=== PATIENT | male | born 1940 | race Caucasian/White ===

== ENCOUNTER 2017-02-24 08:01 | Day surgery (SDC) | payer OTHER ==
[2017-02-20 11:07] VITALS: BMI 21.2
[2017-02-24] MEDS ORDERED: PROPOFOL 20 ML ONE (08:32)
[2017-02-24 10:48] VITALS: BP 131/65; PULSE 68; TEMP 98.1
--- NOTE | 2017-02-26 15:42 | PATH ---
Surgical Pathology Report Patient Name: CARLEE CHING [facility]. Rec. #: [id number] /Age/Gender: 1940 (Age: 77) / M Account: [id number] Location: [facility] [place] Taken: 02/24/2017 Received: 02/24/2017 Reported: 02/26/2017 Physicians: Theodore Randle M.D. Specimen(s) Received BX RECTO-SIGMOID Clinical History History of polyps Polyp Final Diagnosis RECTOSIGMOID, BIOPSY: HYPERPLASTIC POLYP. Electronically Signed Nicol De Santiago M.D. Gross Description Received in formalin, labeled "rectosigmoid" is a norman, polypoid portion of soft tissue measuring 0.4 cm. in greatest dimension. The specimen is submitted in toto in one cassette. 02/25/201702/25/2017
== END 2017-02-24 10:15 | disposition home or self-care (01) ==
LOC: FASU-ENDO 08:01
PROVIDERS: ATTEND Internal Medicine Gastroenterology
PROC: 0DBN8ZX Excision of Sigmoid Colon, Via Natural or Artificial Opening Endoscopic, Diagnostic (ICD-10-PCS; principal; 2017-02-24 09:00)
DX: Z86.010 Personal history of colon polyps (principal); K63.5 Polyp of colon; K57.30 Diverticulosis of large intestine without perforation or abscess without bleeding; K58.9 Irritable bowel syndrome, unspecified
CPT/HCPCS: 88305-TC

== ENCOUNTER 2017-03-18 16:28 | Emergency (ER) | payer OTHER ==
[2017-03-18 16:40] VITALS: BP 138/82; PULSE 98; TEMP 99.1; BMI 24.7
--- NOTE | 2017-03-18 16:45 | PDOC ---
History of Present Illness - General History Source: Patient, Old Records Exam Limitations: No Limitations - History of Present Illness Initial Comments: 03/18/17 16:55 The patient is a 77 year old male with significant history of hyperlipidemia, CAD, COPD, cigarette smoking, prostate CA s/p radiation, who presents to the ED complaining of several days of progressively worsening productive cough with clear sputum. Tmax 100.6. He also reports associated generalized malaise and diffuse headache. Patient's at home was sick with similar symptoms before him. The patient states he was seen at an Urgent Care facility this morning where a chest x-ray was taken. He was sent to the ED for further evaluation. <Jovita Mercer - Last Filed: 03/18/17 17:04> <Zi Wright - Last Filed: 03/18/17 18:33> - General Chief Complaint: Respiratory Stated Complaint: fever,cough r/o pneumonia Time Seen by Provider: 03/18/17 16:45 Past History <Jovita Mercer - Last Filed: 03/18/17 17:04> - Past Medical History Anemia: No Asthma: No Cancer: Yes (PROSTATE) Cardiac Disorders: Yes (CAD) CVA: No COPD: Yes CHF: No Dementia: No Diabetes: No GI Disorders: Yes (GERD COLONIC POLYP) Disorders: Yes (RADIATION FOR PROSTATE CANCER) HTN: No Hypercholesterolemia: Yes Liver Disease: No Seizures: No Thyroid Disease: No - Surgical History Abdominal Surgery: No Appendectomy: No Cardiac Surgery: No Cholecystectomy: No Lung Surgery: No Neurologic Surgery: No Orthopedic Surgery: Yes (RIGHT ANKLE FRACTURE) - Suicide/Smoking/Psychosocial Hx Smoking History: Current every day smoker Have you smoked in the past 12 months: Yes Number of Cigarettes Smoked Daily: 5 Information on smoking cessation initiated: Yes 'Breaking Loose' booklet given: 03/18/17 Hx Alcohol Use: No Drug/Substance Use Hx: No Substance Use Type: None Hx Substance Use Treatment: No <Zi Wright - Last Filed: 03/18/17 18:33> - Past Medical History Allergies/Adverse Reactions: Allergies Allergy/AdvReac Type Severity Reaction Status Date / Time No Known Allergies Allergy Verified 03/18/17 16:30 Home Medications: Ambulatory Orders Ascorbic Acid [Vitamin C] 500 mg PO DAILY 02/20/17 Aspirin [Taran Chewable Aspirin] 81 mg PO DAILY 02/20/17 Cholecalciferol (Vitamin D3) [Vitamin D3 -] 1,000 unit PO DAILY 02/20/17 [place]-3 Fatty Acids/Fish Oil [Fish Oil 1,000 mg Softgel] 1 each PO DAILY Tamsulosin HCl 0.4 mg PO DAILY 02/20/17 Atorvastatin Ca [Lipitor] 10 mg PO HS 03/18/17 Famotidine 20 mg PO DAILY 03/18/17 Guaifenesin AC [Robitussin AC -] 1 - 2 tsp PO TID PRN #120 ml MDD 6 03/18/17 Isosorbide Mononitrate [Isosorbide Mononitrate ER] 30 mg PO DAILY 03/18/17 Multivitamin [Poly-Vitamin] 1 each PO DAILY 03/18/17 Review of Systems - Review of Systems Able to Perform ROS?: Yes Comments:: 03/18/17 16:58 GENERAL/CONSTITUTIONAL: +Fever Tmax 100.6. +Malaise. HEAD, EYES, EARS, NOSE AND THROAT: No change in vision. No ear pain or discharge. No sore throat. CARDIOVASCULAR: No chest pain or lightheadedness. No peripheral edema. RESPIRATORY: +Productive cough with white sputum. No wheezing, or hemoptysis. GASTROINTESTINAL: No nausea, vomiting, diarrhea or constipation. GENITOURINARY: No dysuria, frequency, or change in urination. MUSCULOSKELETAL: No joint or muscle swelling or pain. No neck or back pain. SKIN: No rash NEUROLOGIC: +Diffuse headache. No vertigo, loss of consciousness, or change in strength/sensation. ENDOCRINE: No increased thirst. No abnormal weight change. HEMATOLOGIC/LYMPHATIC: No anemia, easy bleeding, or history of blood clots. ALLERGIC/IMMUNOLOGIC: No hives or skin allergy. <Jovita Mercer - Last Filed: 03/18/17 17:04> *Physical Exam - Vital Signs Last Vital Signs Temp Pulse Resp BP Pulse Ox 99.1 F 98 H 16 138/82 95 03/18/17 16:29 03/18/17 16:29 03/18/17 16:29 03/18/17 16:29 03/18/17 16:29 - Physical Exam Comments: 03/18/17 17:02 GENERAL: Awake, alert, and fully oriented, in no acute distress HEAD: No signs of trauma EYES: PERRLA, EOMI, sclera anicteric, conjunctiva clear ENT: Auricles normal inspection, hearing grossly normal, nares patent, oropharynx clear without exudates. Moist mucosa NECK: Normal ROM, supple, no lymphadenopathy, JVD, or masses LUNGS: No tachypnea or dypsnea. RR 16. 96 on RA. Decreased breath sounds and hyperesonance b/l. No wheezes rales or rhonchi. HEART: Regular rate and rhythm, normal S1 and S2, no murmurs, rubs or gallops ABDOMEN: Soft, nontender, normoactive bowel sounds. No guarding, no rebound. No masses EXTREMITIES: Normal range of motion, no edema. No clubbing or cyanosis. No cords, erythema, or tenderness NEUROLOGICAL: Cranial nerves II through XII grossly intact. Normal speech, normal gait SKIN: Warm, Dry, normal turgor, no rashes or lesions noted. <Jovita Mercer - Last Filed: 03/18/17 17:04> - Vital Signs Last Vital Signs Temp Pulse Resp BP Pulse Ox 99.1 F 98 H 16 138/82 95 03/18/17 16:29 03/18/17 16:29 03/18/17 16:29 03/18/17 16:29 03/18/17 16:29 <Zi Wright - Last Filed: 03/18/17 18:33> Medical Decision Making - Medical Decision Making 03/18/17 18:30 Lifelong smoker with emphysema complains of increased cough for 1 week, temperature to 100.4. Had x-ray at urgent care center, negative for pneumonia. Respiratory rate 16 unlabored, O2 saturation 96% on room air, no tachypnea, dyspnea, or other sign of respiratory distress. Was prescribed antibiotics but did not pick them up. Requests some medication to relieve his cough Physical exam is normal except for signs of COPD as noted. Azithromycin recommended as prescribed by urgent care center. Robitussin with codeine for use at night to facilitate the control of coughing spasms. Instructed to return to the ER if fever is above 101 or there as shortness of breath. Fully ambulatory upon discharge with his , in no distress respiratory or otherwise , to follow-up as directed <Zi Wright - Last Filed: 03/18/17 18:33> *DC/Admit/Observation/Transfer - Attestations Scribe Attestion: 03/18/17 17:03 Documentation prepared by Jovita Mercer, acting as medical artist for iZ Wright MD. <Jovita Mercer - Last Filed: 03/18/17 17:04> - Discharge Dispostion Admit: No <Zi Wright - Last Filed: 03/18/17 18:33> Diagnosis at time of Disposition: Bronchitis, Chronic bronchitis - Discharge Dispostion Disposition: HOME Condition at time of disposition: Stable - Prescriptions Prescriptions: Guaifenesin AC [Robitussin AC -] 1 - 2 tsp PO TID PRN #120 ml MDD 6 PRN Reason: Cough - Referrals - Patient Instructions Printed Discharge Instructions: Smoking Cessation, DI for Chronic Bronchitis Additional Instructions: Try to limit your smoking. Take antibiotics as prescribed by your primary physician and cough medication prescribed no as needed. Return to ER if your temperature goes above 101 or you become short of breath. - Post Discharge Activity
== END 2017-03-18 17:22 | disposition home or self-care (01) ==
LOC: FER 16:28
DX: J42 Unspecified chronic bronchitis (principal); F17.210 Nicotine dependence, cigarettes, uncomplicated; I25.10 Atherosclerotic heart disease of native coronary artery without angina pectoris; Z85.46 Personal history of malignant neoplasm of prostate; E78.00 Pure hypercholesterolemia, unspecified
CPT/HCPCS: 99281-25

== ENCOUNTER 2017-12-06 15:47 | Inpatient (IN) | payer OTHER ==
--- NOTE | 2017-12-06 15:49 | PDOC ---
History of Present Illness - General History Source: Patient Exam Limitations: No Limitations - History of Present Illness Initial Comments: 12/06/17 16:44 The patient is a 77-year-old male, with a significant past medical history of CAD, COPD, GERD, hypercholesterolemia, and prostate cancer (finished radiation treatment 3 years ago), who presents to the ED with 2 days of fever, chills, weakness, and dizziness. As per , the patient woke up at 3AM Friday morning shaking from the cold and sweating. She checked the patients temperature which turned out to be normal. Patients symptoms resolved later on that day without any medications. His symptoms recurred this morning and his temperature was noted to be 101.8. Patient denies taking any medications. He presents to the ED for further evaluation. On exam, the patient reports diaphoresis, nasal congestion, and dysuria. The patient has noted blood in his urine and urine cloudiness. The patient denies any nausea, vomiting, diarrhea, or abdominal pain. He denies any chest pain or shortness of breath. He denies any recent sick contacts. Allergies: NKA Social History: Current smoker. Urologist: Dr. Grimaldo ([facility]) <Maegan Kyle - Last Filed: 12/06/17 18:12> - General History Source: Patient Exam Limitations: No Limitations <Ericka Roche - Last Filed: 12/09/17 07:40> - General Chief Complaint: Urinary Problem Stated Complaint: FEVER URINARY SYMPTOMS Time Seen by Provider: 12/06/17 15:49 Past History <Maegan Kyle - Last Filed: 12/06/17 18:12> - Past Medical History Anemia: No Asthma: No Cancer: Yes (PROSTATE) Cardiac Disorders: Yes (CAD) CVA: No COPD: Yes CHF: No Dementia: No Diabetes: No GI Disorders: Yes (GERD COLONIC POLYP) Disorders: Yes (RADIATION FOR PROSTATE CANCER) HTN: No Hypercholesterolemia: Yes Liver Disease: No Seizures: No Thyroid Disease: No - Surgical History Abdominal Surgery: No Appendectomy: No Cardiac Surgery: No Cholecystectomy: No Lung Surgery: No Neurologic Surgery: No Orthopedic Surgery: Yes (RIGHT ANKLE FRACTURE) - Suicide/Smoking/Psychosocial Hx Smoking History: Current every day smoker Have you smoked in the past 12 months: Yes Number of Cigarettes Smoked Daily: 5 'Breaking Loose' booklet given: 03/18/17 Hx Alcohol Use: No Drug/Substance Use Hx: No Substance Use Type: None Hx Substance Use Treatment: No <Ericka Roche - Last Filed: 12/09/17 07:40> - Past Medical History Allergies/Adverse Reactions: Allergies Allergy/AdvReac Type Severity Reaction Status Date / Time No Known Allergies Allergy Verified 12/06/17 15:48 Home Medications: Ambulatory Orders Ascorbic Acid [Vitamin C] 500 mg PO DAILY 02/20/17 Aspirin [Taran Chewable Aspirin] 81 mg PO DAILY 02/20/17 Cholecalciferol (Vitamin D3) [Vitamin D3 -] 1,000 unit PO DAILY 02/20/17 [place]-3 Fatty Acids/Fish Oil [Fish Oil 1,000 mg Softgel] 1 each PO DAILY Tamsulosin HCl 0.4 mg PO DAILY 02/20/17 Famotidine 20 mg PO DAILY 03/18/17 Isosorbide Mononitrate [Isosorbide Mononitrate ER] 30 mg PO DAILY 03/18/17 Multivitamin [Poly-Vitamin] 1 each PO DAILY 03/18/17 Crestor 10 mg PO HS 12/06/17 Lactobacillus Acidophilus [Acidophilus] 1 each PO DAILY 12/06/17 Montelukast Na [Singulair -] 10 mg PO HS 12/06/17 Acetaminophen [Tylenol .Regular Strength -] 650 mg PO Q6H PRN tablet 12/08/17 Atorvastatin Ca [Lipitor] 10 mg PO HS tablet 12/08/17 Cefuroxime Axetil [Ceftin -] 250 mg PO BID #14 tablet 12/08/17 Rosuvastatin [Crestor -] 10 mg PO HS tablet 12/08/17 Review of Systems - Review of Systems Able to Perform ROS?: Yes Comments:: 12/06/17 16:46 GENERAL/CONSTITUTIONAL: (+)fever, chills, weakness. HEAD, EYES, EARS, NOSE AND THROAT: (+)nasal congestion. No change in vision. No ear pain or discharge. No sore throat. CARDIOVASCULAR: No chest pain or shortness of breath. RESPIRATORY: No cough, wheezing, or hemoptysis. GASTROINTESTINAL: No nausea, vomiting, diarrhea or constipation. GENITOURINARY: (+)dysuria, hematuria. No frequency. MUSCULOSKELETAL: No joint or muscle swelling or pain. No neck or back pain. SKIN: No rash NEUROLOGIC: No headache, vertigo, loss of consciousness, or change in strength/ sensation. ENDOCRINE: No increased thirst. No abnormal weight change. HEMATOLOGIC/LYMPHATIC: No anemia, easy bleeding, or history of blood clots. ALLERGIC/IMMUNOLOGIC: No hives or skin allergy. <SarojMaegan - Last Filed: 12/06/17 18:12> *Physical Exam - Vital Signs Last Vital Signs Temp Pulse Resp BP Pulse Ox 100.7 F H 94 H 20 111/64 95 12/06/17 15:48 12/06/17 15:48 12/06/17 15:48 12/06/17 15:48 12/06/17 15:48 - Physical Exam Comments: 12/06/17 16:54 GENERAL:(+)Patient appears diaphoretic. The patient is in no acute distress. HEAD: Normal with no signs of trauma. EYES: PERRLA, EOMI, sclera anicteric, conjunctiva clear. ENT: Ears normal, nares patent, oropharynx clear without exudates. Moist mucous membranes. NECK: Normal range of motion, supple without lymphadenopathy, JVD, or masses. LUNGS: (+)Coarse breath sounds. No wheezes, and no crackles. HEART: (+)Systolic murmur throughout the pericardium. No rub or gallop. ABDOMEN: Soft, nontender, normoactive bowel sounds. No guarding, no rebound. No masses palpable. EXTREMITIES: Normal range of motion, no edema. No clubbing or cyanosis. No erythema, or tenderness. NEUROLOGICAL: Cranial nerves II through XII grossly intact. Normal speech. No focal neurological deficits. MUSCULOSKELETAL: Back non-tender to palpation, no CVA tenderness SKIN: Warm, Dry, normal turgor, no rashes or lesions noted. <Maegan Kyle - Last Filed: 12/06/17 18:12> ED Treatment Course - LABORATORY CBC & Chemistry Diagram: 12/06/17 16:41 12/06/17 16:41 - RADIOLOGY Radiology Studies Ordered: 12/06/17 18:02 Chest X-Ray was reviewed by Dr. Roche and over-read by Radiology. Impression: Increased interstitial markings. Possible chronic lung disease. Suggest prior studies or CT for further evaluation. <Maegan Kyle - Last Filed: 12/06/17 18:12> - LABORATORY CBC & Chemistry Diagram: 12/07/17 07:00 12/08/17 07:30 <Ericka Roche - Last Filed: 12/09/17 07:40> Medical Decision Making - Medical Decision Making 12/06/17 18:23 77 yo M with 2 days of fever and weakness DD: viral illness, UTI, Pneumonia, Cellulitis, Intra- abdominal abscess Will do: Labs, EKG, IVF, CXR Reassess Laboratory Tests 12/06/17 12/06/17 16:41 16:41 WBC 12.2 H Hgb 14.5 Hct 42.5 Plt Count 157 Absolute Neuts (auto) 11.3 Neutrophils % 91.8 H Lymphocytes % 3.3 L Sodium 128 L Potassium 3.8 Chloride 100 Carbon Dioxide 24 Anion Gap 4 L BUN 24 H Creatinine 1.1 Random Glucose 111 H Calcium 7.8 L Albumin 3.1 L Case reviewed with Hospitalist Will admit to their service on observation Clinical Impression: urinary tract infection, initial presentation fever, initial presentation <Ericka Roche - Last Filed: 12/09/17 07:40> *DC/Admit/Observation/Transfer - Attestations Scribe Attestion: 12/06/17 16:58 Documentation prepared by Maegan Kyle, acting as medical program specialist for Ericka Roche MD. <Maegan Kyle - Last Filed: 12/06/17 18:12> - Discharge Dispostion Decision to Admit order: Yes <Ericka Roche - Last Filed: 12/09/17 07:40> Diagnosis at time of Disposition: UTI (urinary tract infection) Qualifiers: Urinary tract infection type: site unspecified Hematuria presence: without hematuria Qualified Code(s): N39.0 - Urinary tract infection, site not specified Sepsis Qualifiers: Sepsis type: sepsis due to unspecified organism Qualified Code(s): A41.9 - Sepsis, unspecified organism - Discharge Dispostion Condition at time of disposition: Stable
[2017-12-06] MEDS ORDERED: SODIUM CHLORIDE 1,000 ML IV STA (16:11)
[2017-12-06 16:36] LABS: URINE BILIRUBIN Negative (NEGATIVE); URINE GLUCOSE (UA) Negative (NEGATIVE); URINE KETONE Negative (NEGATIVE); URINE NITRITE Positive (NEGATIVE); URINE UROBILINOGEN 0.2 (0.2-1.0)
[2017-12-06 16:49] LABS: URINE APPEARANCE CLOUDY; URINE COLOR YELLOW; URINE LEUK ESTERASE 3+ (NEGATIVE); URINE PROTEIN 1+ (NEGATIVE)
[2017-12-06 16:57] LABS: BASO % 0.3 % (0-2.0); EOS % 1.1 % (0-4.5); HEMATOCRIT 42.5 % (35.4-49); HEMOGLOBIN 14.5 GM/dl (11.7-16.9); LYMPH % 3.3 % (8-40); MCH 29.3 pg (25.7-33.7); MCHC 34.2 g/dl (32.0-35.9); MEAN CELL VOLUME 85.8 fl (80-96); MEAN PLT VOLUME 6.6 fl (7.5-11.1); MONO % 3.5 % (3.8-10.2); NEUT % 91.8 % (42.8-82.8); PLATELET COUNT 157 K/MM3 (134-434); RBC 4.96 M/mm3 (4.00-5.60); WHITE BLOOD COUNT 12.2 K/mm3 (4.0-10.8)
[2017-12-06 17:08] LABS: AMORP URATES FEW /hpf (NONE SEEN); EPI CELLS FEW /HPF; URINE BACTERIA MODERATE /hpf (NEGATIVE); URINE WBC 40-60 (0-2)
[2017-12-06 17:11] LABS: ALBUMIN 3.1 g/dl (3.5-5.0); ALK PHOS 81 U/L (32-92); ANION GAP 4 (8-16); BILIRUBIN,TOTAL 0.7 mg/dl (0.2-1.0); BLOOD UREA NITROGEN 24 mg/dl (7-18); CALCIUM 7.8 mg/dl (8.4-10.2); CHLORIDE 100 mmol/L (98-107); CO2 24 mmol/L (22-28); CREATININE 1.1 mg/dl (0.6-1.3); GLUCOSE,RANDOM 111 mg/dl (74-106); POTASSIUM 3.8 mmol/L (3.5-5.1); SGOT/AST 28 U/L (10-42); SGPT/ALT 24 U/L (10-40); SODIUM 128 mmol/L (136-145); TOT PROT 6.3 g/dl (6.4-8.3)
[2017-12-06] MEDS ORDERED: CEFTRIAXONE 1 GM in DEXTROSE 5%-WATER - 50 ML IVPB ONE (17:13)
[2017-12-06] MEDS ORDERED: ACETAMINOPHEN 1000 MG/100 ML VIAL (NON FORMULARY) IVPB ONE (17:18)
[2017-12-06] MEDS ORDERED: ACETAMINOPHEN INJECTION 100 ML IVPB ONE (17:21)
[2017-12-06] MEDS ORDERED: cefTRIAXone SODIUM 1 GM VIAL ONE (17:22)
[2017-12-06] MEDS ORDERED: ACETAMINOPHEN 325 MG TABLET (FP) PO PRN (19:55)
[2017-12-06 21:14] VITALS: BMI 43.6
[2017-12-06] MEDS ORDERED: SODIUM CHLORIDE 1,000 ML IV ONE ×2 (21:30)
--- NOTE | 2017-12-06 21:39 | HP ---
CHIEF COMPLAINT: Fever, Chills, Weakness PCP: HISTORY OF PRESENT ILLNESS: 77 y/o man PMH Prostate Ca (completed RT 3 yrs ago), CAD, COPD, HLD, GERD. Who presents to the ED with fever, chills, weakness, and fatigue x several days. Patient also reports having bladder spasms over the last several weeks worse today. Patient denies cough, SOB, CP, palpitations, N/V/D, constipation. ER course was notable for: (1) Sepsis Criteria Met- T Max 100.7, P 94, WBC 12.4, BUN 24, (2) UTI- +nitrate, +3 leukocyte esterase, +1 protein, +3 blood, 40-60 WBC (3) Recent Travel: None PAST MEDICAL HISTORY: See HPI PAST SURGICAL HISTORY: R-ankle (fx repair) Social History: Smoking: Current Alcohol: Social Drugs: None Lives with spouse, retired Family History: Non- contributory Allergies No Known Allergies Allergy (Verified 12/06/17 15:48) HOME MEDICATIONS: Home Medications Medication Instructions Recorded Ascorbic Acid [Vitamin C] 500 mg PO DAILY 02/20/17 Aspirin [Taran Chewable Aspirin] 81 mg PO DAILY 02/20/17 Cholecalciferol (Vitamin D3) 1,000 unit PO DAILY 02/20/17 [Vitamin D3 -] [place]-3 Fatty Acids/Fish Oil [Fish 1 each PO DAILY 02/20/17 Oil 1,000 mg Softgel] Tamsulosin HCl 0.4 mg PO DAILY 02/20/17 Atorvastatin Ca [Lipitor] 10 mg PO HS 03/18/17 Famotidine 20 mg PO DAILY 03/18/17 Isosorbide Mononitrate [Isosorbide 30 mg PO DAILY 03/18/17 Mononitrate ER] Multivitamin [Poly-Vitamin] 1 each PO DAILY 03/18/17 Lactobacillus Acidophilus 1 each PO DAILY 12/06/17 [Acidophilus] Montelukast Na [Singulair -] 10 mg PO HS 12/06/17 REVIEW OF SYSTEMS CONSTITUTIONAL: fever, chills, generalized weakness, malaise Absent: diaphoresis, loss of appetite, weight change HEENT: Absent: rhinorrhea, nasal congestion, throat pain, throat swelling, difficulty swallowing, mouth swelling, ear pain, eye pain, visual changes CARDIOVASCULAR: Absent: chest pain, syncope, palpitations, irregular heart rate, lightheadedness , peripheral edema RESPIRATORY: Absent: cough, shortness of breath, dyspnea with exertion, orthopnea, wheezing, stridor, hemoptysis GASTROINTESTINAL: Absent: abdominal pain, abdominal distension, nausea, vomiting, diarrhea, constipation, melena, hematochezia GENITOURINARY: bladder spasms Absent: dysuria, frequency, urgency, hesitancy, hematuria, flank pain, genital pain MUSCULOSKELETAL: Absent: myalgia, arthralgia, joint swelling, back pain, neck pain SKIN: Absent: rash, itching, pallor HEMATOLOGIC/IMMUNOLOGIC: Absent: easy bleeding, easy bruising, lymphadenopathy, frequent infections ENDOCRINE: Absent: unexplained weight gain, unexplained weight loss, heat intolerance, cold intolerance NEUROLOGIC: Absent: headache, focal weakness or paresthesias, dizziness, unsteady gait, seizure, mental status changes, bladder or bowel incontinence PSYCHIATRIC: Absent: anxiety, depression, suicidal or homicidal ideation, hallucinations. PHYSICAL EXAMINATION Vital Signs - 24 hr 12/06/17 12/06/17 12/06/17 15:48 19:50 19:53 Temperature 100.7 F H 98.7 F Pulse Rate 94 H Pulse Rate [ 66 Radial] Respiratory 20 16 Rate Blood Pressure 111/64 Blood Pressure 100/52 [Arm] O2 Sat by Pulse 95 97 97 Oximetry (%) 12/06/17 12/06/17 20:44 20:52 Temperature 97.7 F Pulse Rate 65 Pulse Rate [ Radial] Respiratory 19 19 Rate Blood Pressure 98/50 Blood Pressure [Arm] O2 Sat by Pulse 98 98 Oximetry (%) GENERAL: Asleep but arousable and oriented x2, in no acute distress. HEAD: Normal with no signs of trauma. EYES: Pupils equal, round and reactive to light, extraocular movements intact, sclera anicteric, conjunctiva clear. No lid lag. EARS, NOSE, THROAT: Dry mucous membranes. Ears normal, nares patent, oropharynx clear without exudates. NECK: Normal range of motion, supple without lymphadenopathy, JVD, or masses. LUNGS: Breath sounds equal, clear to auscultation bilaterally. No wheezes, and no crackles. No accessory muscle use. HEART: Regular rate and rhythm, normal S1 and S2 without murmur, rub or gallop. ABDOMEN: suprapubic tenderness, soft, not distended, normoactive bowel sounds, no guarding, no rebound, no masses. No hepatomegaly or splenomegaly. MUSCULOSKELETAL: Normal range of motion at all joints. No bony deformities or tenderness. No CVA tenderness. UPPER EXTREMITIES: 2+ pulses, warm, well-perfused. No cyanosis. No clubbing. No peripheral edema. LOWER EXTREMITIES: 2+ pulses, warm, well-perfused. No calf tenderness. No peripheral edema. NEUROLOGICAL: Cranial nerves II-XII intact. Normal speech. Gait not observed. PSYCHIATRIC: Cooperative. Good eye contact. Appropriate mood and affect. SKIN: Warm, dry, normal turgor, no rashes or lesions noted, normal capillary refill. Laboratory Results - last 24 hr 12/06/17 12/06/17 12/06/17 16:27 16:41 16:41 WBC 12.2 H RBC 4.96 Hgb 14.5 Hct 42.5 MCV 85.8 MCH 29.3 MCHC 34.2 RDW 13.0 Plt Count 157 MPV 6.6 L Absolute Neuts (auto) 11.3 Neutrophils % 91.8 H Lymphocytes % 3.3 L Monocytes % 3.5 L Eosinophils % 1.1 Basophils % 0.3 Sodium 128 L Potassium 3.8 Chloride 100 Carbon Dioxide 24 Anion Gap 4 L BUN 24 H Creatinine 1.1 Creat Clearance w eGFR > 60 Random Glucose 111 H Lactic Acid Calcium 7.8 L Total Bilirubin 0.7 AST 28 ALT 24 Alkaline Phosphatase 81 Total Protein 6.3 L Albumin 3.1 L Urine Color Yellow Urine Appearance Cloudy Urine pH 5.0 Ur Specific [place] 1.020 Urine Protein 1+ H Urine Glucose (UA) Negative Urine Ketones Negative Urine Blood 3+ H Urine Nitrite Positive Urine Bilirubin Negative Urine Urobilinogen 0.2 Ur Leukocyte Esterase 3+ H Urine RBC 5-10 Urine WBC 40-60 Ur Epithelial Cells Few Amorphous Urates Few Urine Bacteria Moderate 12/06/17 16:41 WBC RBC Hgb Hct MCV MCH MCHC RDW Plt Count MPV Absolute Neuts (auto) Neutrophils % Lymphocytes % Monocytes % Eosinophils % Basophils % Sodium Potassium Chloride Carbon Dioxide Anion Gap BUN Creatinine Creat Clearance w eGFR Random Glucose Lactic Acid 1.1 Calcium Total Bilirubin AST ALT Alkaline Phosphatase Total Protein Albumin Urine Color Urine Appearance Urine pH Ur Specific [place] Urine Protein Urine Glucose (UA) Urine Ketones Urine Blood Urine Nitrite Urine Bilirubin Urine Urobilinogen Ur Leukocyte Esterase Urine RBC Urine WBC Ur Epithelial Cells Amorphous Urates Urine Bacteria ASSESSMENT/PLAN: 77 y/o man PMHx Prostate Ca ( RT 3yrs ago), CAD, COPD, GERD, HLD. Placed on Observation Sepsis secondary to UTI. Plan: 1. Sepsis - Likely secondary to UTI - UA- +3 blood, +3 Joi Esterase, +Nitrate, 40-60 WBC, mod Bacteria - Urine Culture-pending - Sepsis Criteria Met - qSOFA Score 2 - Ceftriaxone given in ED will continue - Consider ID if condition worsens - Repeat CBC, BMP in am - Monitor vitals - Continue IVF - Chest Xray-reviewed 2. CAD - stable - continue home meds with parameters 3. COPD - controlled - Continue home meds - Monitor vitals 4. GERD - stable - Continue home med 5. Hyperlipidemia - Stable - Continue rosuvastatin - Monitor LFTs 6. Prostate Ca - s/p RT - FU with oncologist outpatient as needed 7. FEN - NS@42ml/hr - Replete lytes prn - Low Na, Low Cholesterol Diet 8. DVT ppx - OOB - SCDs - Heparin SQ Code Status: Full Code Dispo: Tele Observation Problem List - Problem (1) Sepsis Code(s): A41.9 - SEPSIS, UNSPECIFIED ORGANISM Qualifiers: Sepsis type: sepsis due to unspecified organism Qualified Code(s): A41.9 - Sepsis, unspecified organism (2) UTI (urinary tract infection) Code(s): N39.0 - URINARY TRACT INFECTION, SITE NOT SPECIFIED Qualifiers: Urinary tract infection type: site unspecified Hematuria presence: without hematuria Qualified Code(s): N39.0 - Urinary tract infection, site not specified (3) CAD (coronary artery disease) Code(s): I25.10 - ATHSCL HEART DISEASE OF [place] CORONARY ARTERY W/O ANG PCTRS (4) COPD (chronic obstructive pulmonary disease) Code(s): J44.9 - CHRONIC OBSTRUCTIVE PULMONARY DISEASE, UNSPECIFIED (5) HLD (hyperlipidemia) Code(s): E78.5 - HYPERLIPIDEMIA, UNSPECIFIED (6) GERD (gastroesophageal reflux disease) Code(s): K21.9 - GASTRO-ESOPHAGEAL REFLUX DISEASE WITHOUT ESOPHAGITIS (7) Prostate CA Code(s): C61 - MALIGNANT NEOPLASM OF PROSTATE Visit type - Emergency Visit Emergency Visit: Yes ED Registration Date: 12/06/17 Care time: The patient presented to the Emergency Department on the above date and was hospitalized for further evaluation of their emergent condition. - New Patient This patient is new to me today: Yes Date on this admission: 12/06/17 - Critical Care Critical Care patient: No Hospitalist Screening - Colonoscopy Questionnaire Colonoscopy Questionnaire: Colonoscopy Questionnaire - Patient: 50 - 75 years old and never had a screening colonoscopy: Unknown History of colon or rectal polyps, or CA: Unknown History of IBD, Crohn's disease or UC: Unknown History of abdominal radiation therapy as a child: Unknown - Relative: 1 with colon or rectal CA, or polyps at age 60 or younger: Unknown Colon or rectal CA diagnosed at age 45 or younger: Unknown Multiple relatives with colon or rectal CA: Unknown - Outcome: Screening Result: Negative Screen
[2017-12-06] MEDS ORDERED: ATORVASTATIN CA 10 MG TABLET (FP) PO SCH (22:00)
[2017-12-06] MEDS: MONTELUKAST NA 10 MG TABLET PO SCH (22:09)
[2017-12-06] MEDS ORDERED: SODIUM CHLORIDE 1,000 ML IV SCH (22:30)
[2017-12-06] MEDS: SODIUM CHLORIDE 1,000 ML IV SCH (23:00)
[2017-12-06] MEDS: ROSUVASTATIN CA 10 MG TABLET (FP) PO SCH (23:01)
[2017-12-07] MEDS: TAMSULOSIN HCL 0.4 MG CAP.ER.24H (FP) PO SCH (08:20)
[2017-12-07 09:27] LABS: EOS % 9.5 % (0-4.5); HEMATOCRIT 39.9 % (35.4-49); HEMOGLOBIN 13.4 GM/dl (11.7-16.9); LYMPH % 9.4 % (8-40); MCH 29.3 pg (25.7-33.7); MCHC 33.7 g/dl (32.0-35.9); MEAN CELL VOLUME 86.9 fl (80-96); MEAN PLT VOLUME 7.1 fl (7.5-11.1); MONO % 7.4 % (3.8-10.2); NEUT % 73.7 % (42.8-82.8); PLATELET COUNT 132 K/MM3 (134-434); RBC 4.59 M/mm3 (4.00-5.60); WHITE BLOOD COUNT 8.6 K/mm3 (4.0-10.8)
[2017-12-07] MEDS: CEFTRIAXONE 1 G/50 ML PREMIX 1 ML IVPB SCH (09:30)
[2017-12-07] MEDS: ASPIRIN 81 MG CHEWABLE TABLETS PO SCH (09:31)
[2017-12-07] MEDS: MULTIVITAMINS (DAILY MVI) TABLET (FP) PO SCH (09:31)
[2017-12-07] MEDS: FAMOTIDINE 20 MG TABLET PO SCH (09:31)
[2017-12-07] MEDS: CHOLECALCIFEROL (VITAMIN D3) 1,000 UNIT TABLET (FP) PO SCH (09:31)
[2017-12-07] MEDS: LACTOBACILLUS ACIDOPHILUS 1 TABLET PO SCH (09:32)
[2017-12-07 09:35] LABS: ANION GAP 7 (8-16); BLOOD UREA NITROGEN 17 mg/dl (7-18); CALCIUM 7.8 mg/dl (8.4-10.2); CHLORIDE 104 mmol/L (98-107); CO2 24 mmol/L (22-28); CREATININE 0.8 mg/dl (0.6-1.3); GLUCOSE,RANDOM 92 mg/dl (74-106); POTASSIUM 3.8 mmol/L (3.5-5.1); SODIUM 135 mmol/L (136-145)
[2017-12-07] MEDS: ISOSORBIDE MONONITRATE 30 MG TAB.SR.24H (FP) PO SCH (09:36)
[2017-12-07] MEDS: OMEGA-3 ACID ETHYL ESTERS (FATTY-ACIDS) 1 GM CAPSULE (FP) PO SCH (09:57)
--- NOTE | 2017-12-07 11:56 | PN ---
Physical Exam: SUBJECTIVE: Patient seen and examined,reports feeling better, dysuria and urinary frequency improved, denies fever, chills, cp, sob, abdominal pain,N/V/D. OBJECTIVE: Vital Signs Period Temp Pulse Resp BP Sys/Olea Pulse Ox Last 24 Hr 97.7 F-100.7 F 60-94 16-20 92-113/44-66 95-98 GENERAL: The patient is awake, alert, and fully oriented, in no acute distress. HEAD: Normal with no signs of trauma. EYES: PERRL, extraocular movements intact, sclera anicteric, conjunctiva clear. No ptosis. ENT: Ears normal, nares patent, oropharynx clear without exudates, moist mucous membranes. NECK: Trachea midline, full range of motion, supple. LUNGS: Breath sounds equal, clear to auscultation bilaterally, no wheezes, no crackles, no accessory muscle use. HEART: Regular rate and rhythm, S1, S2 without murmur, rub or gallop. ABDOMEN: Soft, nontender, nondistended, normoactive bowel sounds, no guarding, no rebound, no hepatosplenomegaly, no masses. EXTREMITIES: 2+ pulses, warm, well-perfused, no edema. NEUROLOGICAL: Cranial nerves II through XII grossly intact. Normal speech, gait not observed. PSYCH: Normal mood, normal affect. SKIN: Warm, dry, normal turgor, no rashes or lesions noted Laboratory Results - last 24 hr 12/06/17 12/06/17 12/06/17 16:27 16:41 16:41 WBC 12.2 H RBC 4.96 Hgb 14.5 Hct 42.5 MCV 85.8 MCH 29.3 MCHC 34.2 RDW 13.0 Plt Count 157 MPV 6.6 L Absolute Neuts (auto) 11.3 Neutrophils % 91.8 H Lymphocytes % 3.3 L Monocytes % 3.5 L Eosinophils % 1.1 Basophils % 0.3 Sodium 128 L Potassium 3.8 Chloride 100 Carbon Dioxide 24 Anion Gap 4 L BUN 24 H Creatinine 1.1 Creat Clearance w eGFR > 60 Random Glucose 111 H Lactic Acid Calcium 7.8 L Total Bilirubin 0.7 AST 28 ALT 24 Alkaline Phosphatase 81 Total Protein 6.3 L Albumin 3.1 L Urine Color Yellow Urine Appearance Cloudy Urine pH 5.0 Ur Specific Dorris 1.020 Urine Protein 1+ H Urine Glucose (UA) Negative Urine Ketones Negative Urine Blood 3+ H Urine Nitrite Positive Urine Bilirubin Negative Urine Urobilinogen 0.2 Ur Leukocyte Esterase 3+ H Urine RBC 5-10 Urine WBC 40-60 Ur Epithelial Cells Few Amorphous Urates Few Urine Bacteria Moderate 12/06/17 12/07/17 12/07/17 16:41 07:00 07:00 WBC 8.6 RBC 4.59 Hgb 13.4 Hct 39.9 MCV 86.9 MCH 29.3 MCHC 33.7 RDW 13.0 Plt Count 132 L MPV 7.1 L Absolute Neuts (auto) 6.4 Neutrophils % 73.7 Lymphocytes % 9.4 D Monocytes % 7.4 D Eosinophils % 9.5 H D Basophils % 0.0 Sodium 135 L Potassium 3.8 Chloride 104 Carbon Dioxide 24 Anion Gap 7 L BUN 17 Creatinine 0.8 Creat Clearance w eGFR > 60 Random Glucose 92 Lactic Acid 1.1 Calcium 7.8 L Total Bilirubin AST ALT Alkaline Phosphatase Total Protein Albumin Urine Color Urine Appearance Urine pH Ur Specific Dorris Urine Protein Urine Glucose (UA) Urine Ketones Urine Blood Urine Nitrite Urine Bilirubin Urine Urobilinogen Ur Leukocyte Esterase Urine RBC Urine WBC Ur Epithelial Cells Amorphous Urates Urine Bacteria Active Medications Generic Name Dose Route Start Last Admin Trade Name Freq PRN Reason Stop Dose Admin Acetaminophen 650 mg 12/06/17 19:55 Tylenol - PO Q6H PRN FEVER Aspirin 81 mg 12/07/17 10:00 12/07/17 09:31 Asa - PO 81 mg DAILY KIRSTIN Administration Cholecalciferol 1,000 unit 12/07/17 10:00 12/07/17 09:31 Vitamin D3 - PO 1,000 unit DAILY KIRSTIN Administration Famotidine 20 mg 12/07/17 10:00 12/07/17 09:31 Pepcid - PO 20 mg DAILY KIRSTIN Administration Ceftriaxone Sodium 1 mls @ 2 mls/hr 12/07/17 10:00 12/07/17 09:30 Ceftriaxone 1 Gm-D5w Bag IVPB 2 mls/hr DAILY KIRSTIN Administration Protocol Sodium Chloride 1,000 mls @ 42 mls/hr 12/06/17 23:00 12/06/17 23:00 Normal Saline - IV 42 mls/hr ASDIR KIRSTIN Administration Isosorbide Mononitrate 30 mg 12/07/17 10:00 12/07/17 09:36 Imdur - PO Not Given DAILY KIRSTIN Lactobacillus Acidophilus 1 tab 12/07/17 10:00 12/07/17 09:32 Bacid - PO 1 tab DAILY KIRSTIN Administration Montelukast Sodium 10 mg 12/06/17 22:00 12/06/17 22:09 Singulair - PO 10 mg HS KIRSTIN Administration Multivitamins/Minerals/Vitamin C 1 tab 12/07/17 10:00 12/07/17 09:31 Tab-A-Vit - PO 1 tab DAILY KIRSTIN Administration [id number] Ethyl Esters 1 gm 12/07/17 10:00 12/07/17 09:57 Lovaza - PO 1 gm DAILY KIRSTIN Administration Rosuvastatin Calcium 10 mg 12/06/17 22:00 12/06/17 23:01 Crestor - PO 10 mg HS KIRSTIN Administration Tamsulosin HCl 0.4 mg 12/07/17 08:30 12/07/17 08:20 Flomax - PO 0.4 mg DAILY@0830 KIRSTIN Administration Chest Xray-reviewed,increased interstitial markings, probable chronic lung disease. ASSESSMENT/PLAN: This is a 77 y/o man PMH Prostate Ca (completed RT 3 yrs ago), CAD, COPD, HLD, GERD. Who presents to the ED with fever, chills, weakness, and fatigue x several days. Admitted with Sepsis likely secondary to UTI. UTI. Patient also reports having bladder spasms over the last several weeks worse today. Patient denies cough, SOB, CP, palpitations, N/V/D, constipation. ER course was notable for: (1) Sepsis Criteria Met- T Max 100.7, P 94, WBC 12.4, BUN 24, (2) UTI- +nitrate, +3 leukocyte esterase, +1 protein, +3 blood, 40-60 WBC (3) * Sepsis likely secondary to UTI - UA- +3 blood, +3 Joi Esterase, +Nitrate, 40-60 WBC, mod Bacteria - lactic acid - wnl - morris cultures pending - will cont on Ceftriaxone - Consider ID if condition worsens - leukocytosis normalized, afebrile now - will continue IVF *CAD- stable, denies cp - continue home meds with parameters *COPD- stable - Continue home meds - Monitor vitals * GERD-stable - Continue PPI *Hyperlipidemia -Continue Rosuvastatin - LFTs- WNL *Prostate Ca - s/p RT - FU with oncologist outpatient as needed * Hyponatremia- likely due to dehydration - NA 128> 135, bun 24>7 - will cotn on gentle hydration * FEN - NS@42ml/hr - Replete lytes prn - Low Na, Low Cholesterol Diet *DVT ppx - OOB - SCDs - Heparin SQ Code Status: Full Code Dispo: Requires in patient care. Visit type - Emergency Visit Emergency Visit: Yes ED Registration Date: 12/06/17 Care time: The patient presented to the Emergency Department on the above date and was hospitalized for further evaluation of their emergent condition. - New Patient This patient is new to me today: Yes Date on this admission: 12/07/17 - Critical Care Critical Care patient: No
[2017-12-07] MEDS: ROSUVASTATIN CA 10 MG TABLET (FP) PO SCH (21:12)
[2017-12-07] MEDS: MONTELUKAST NA 10 MG TABLET PO SCH (21:13)
[2017-12-07] MEDS: SODIUM CHLORIDE 1,000 ML IV SCH (23:24)
[2017-12-08 08:58] LABS: ANION GAP 5 (8-16); BLOOD UREA NITROGEN 13 mg/dl (7-18); CALCIUM 8.2 mg/dl (8.4-10.2); CHLORIDE 105 mmol/L (98-107); CO2 28 mmol/L (22-28); CREATININE 0.9 mg/dl (0.6-1.3); GLUCOSE,RANDOM 117 mg/dl (74-106); POTASSIUM 3.9 mmol/L (3.5-5.1); SODIUM 138 mmol/L (136-145)
[2017-12-08] MEDS: TAMSULOSIN HCL 0.4 MG CAP.ER.24H (FP) PO SCH (09:19)
--- NOTE | 2017-12-08 09:39 | PN ---
Physical Exam: SUBJECTIVE: Patient seen and examined OBJECTIVE: Vital Signs Period Temp Pulse Resp BP Sys/Olea Pulse Ox Last 24 Hr 98.2 F-98.6 F 62-64 18-19 100-140/43-55 95-98 GENERAL: The patient is awake, alert, and fully oriented, in no acute distress. HEAD: Normal with no signs of trauma. EYES: PERRL, extraocular movements intact, sclera anicteric, conjunctiva clear. No ptosis. ENT: Ears normal, nares patent, oropharynx clear without exudates, moist mucous membranes. NECK: Trachea midline, full range of motion, supple. LUNGS: Breath sounds equal, clear to auscultation bilaterally, no wheezes, no crackles, no accessory muscle use. HEART: Regular rate and rhythm, S1, S2 without murmur, rub or gallop. ABDOMEN: Soft, nontender, nondistended, normoactive bowel sounds, no guarding, no rebound, no hepatosplenomegaly, no masses. EXTREMITIES: 2+ pulses, warm, well-perfused, no edema. NEUROLOGICAL: Cranial nerves II through XII grossly intact. Normal speech, gait not observed. PSYCH: Normal mood, normal affect. SKIN: Warm, dry, normal turgor, no rashes or lesions noted Laboratory Results - last 24 hr 12/07/17 12/08/17 07:00 07:30 Sodium 135 L 138 Potassium 3.8 3.9 Chloride 104 105 Carbon Dioxide 24 28 Anion Gap 7 L 5 L BUN 17 13 Creatinine 0.8 0.9 Creat Clearance w eGFR > 60 > 60 Random Glucose 92 117 H D Calcium 7.8 L 8.2 L Active Medications Generic Name Dose Route Start Last Admin Trade Name Freq PRN Reason Stop Dose Admin Acetaminophen 650 mg 12/06/17 19:55 Tylenol - PO Q6H PRN FEVER Aspirin 81 mg 12/07/17 10:00 12/07/17 09:31 Asa - PO 81 mg DAILY KIRSTIN Administration Cholecalciferol 1,000 unit 12/07/17 10:00 12/07/17 09:31 Vitamin D3 - PO 1,000 unit DAILY KIRSTIN Administration Famotidine 20 mg 12/07/17 10:00 12/07/17 09:31 Pepcid - PO 20 mg DAILY KIRSTIN Administration Ceftriaxone Sodium 1 mls @ 2 mls/hr 12/07/17 10:00 12/07/17 09:30 Ceftriaxone 1 Gm-D5w Bag IVPB 2 mls/hr DAILY KIRSTIN Administration Protocol Sodium Chloride 1,000 mls @ 42 mls/hr 12/06/17 23:00 12/07/17 23:24 Normal Saline - IV 42 mls/hr ASDIR KIRSTIN Administration Isosorbide Mononitrate 30 mg 12/07/17 10:00 12/07/17 09:36 Imdur - PO Not Given DAILY KIRSTIN Lactobacillus Acidophilus 1 tab 12/07/17 10:00 12/07/17 09:32 Bacid - PO 1 tab DAILY KIRSTIN Administration Montelukast Sodium 10 mg 12/06/17 22:00 12/07/17 21:13 Singulair - PO 10 mg HS KIRSTIN Administration Multivitamins/Minerals/Vitamin C 1 tab 12/07/17 10:00 12/07/17 09:31 Tab-A-Vit - PO 1 tab DAILY KIRSTIN Administration Edrvs-8-Evor Ethyl Esters 1 gm 12/07/17 10:00 12/07/17 09:57 Lovaza - PO 1 gm DAILY KIRSTIN Administration Rosuvastatin Calcium 10 mg 12/06/17 22:00 12/07/17 21:12 Crestor - PO 10 mg HS KIRSTIN Administration Tamsulosin HCl 0.4 mg 12/07/17 08:30 12/08/17 09:19 Flomax - PO 0.4 mg DAILY@0830 KIRSTIN Administration ASSESSMENT/PLAN:
[2017-12-08] MEDS: ASPIRIN 81 MG CHEWABLE TABLETS PO SCH (10:25)
[2017-12-08] MEDS: CEFTRIAXONE 1 G/50 ML PREMIX 1 ML IVPB SCH (10:25)
[2017-12-08] MEDS: LACTOBACILLUS ACIDOPHILUS 1 TABLET PO SCH (10:25)
[2017-12-08] MEDS: OMEGA-3 ACID ETHYL ESTERS (FATTY-ACIDS) 1 GM CAPSULE (FP) PO SCH (10:26)
[2017-12-08] MEDS: ISOSORBIDE MONONITRATE 30 MG TAB.SR.24H (FP) PO SCH (10:26)
[2017-12-08] MEDS: MULTIVITAMINS (DAILY MVI) TABLET (FP) PO SCH (10:27)
[2017-12-08] MEDS: FAMOTIDINE 20 MG TABLET PO SCH (10:27)
[2017-12-08] MEDS: CHOLECALCIFEROL (VITAMIN D3) 1,000 UNIT TABLET (FP) PO SCH (10:27)
--- NOTE | 2017-12-08 11:42 | DS ---
Physical Exam: SUBJECTIVE: Patient seen and examined, ambulatory at bedside denies any chest pain or shortness of breath, patient denies any tactile fevers. OBJECTIVE:77 y/o man PMH Prostate Ca (completed RT 3 yrs ago), CAD, COPD, HLD, GERD. Who presents to the ED with fever, chills, weakness, and fatigue x several days. Patient also reports having bladder spasms over the last several weeks worse today. Patient denies cough, SOB, CP, palpitations, N/V/D, constipation. ER course was notable for: (1) Sepsis Criteria Met- T Max 100.7, P 94, WBC 12.4, BUN 24, (2) UTI- +nitrate, +3 leukocyte esterase, +1 protein, +3 blood, 40-60 WBC Vital Signs Period Temp Pulse Resp BP Sys/Olea Pulse Ox Last 24 Hr 98.2 F-98.6 F 62-64 18-19 100-140/43-55 95-98 PHYSICAL EXAM GENERAL: The patient is awake, alert, and fully oriented, in no acute distress. HEAD: Normal with no signs of trauma. EYES: PERRL, extraocular movements intact, sclera anicteric, conjunctiva clear. ENT: Ears normal, nares patent, oropharynx clear without exudates, moist mucous membranes. NECK: Trachea midline, full range of motion, supple. LUNGS: Breath sounds equal, clear to auscultation bilaterally, no wheezes, no crackles, no accessory muscle use. HEART: Regular rate and rhythm, S1, S2 without murmur, rub or gallop. ABDOMEN: Soft, nontender, nondistended, normoactive bowel sounds, no guarding, no rebound, no hepatosplenomegaly, no masses. EXTREMITIES: 2+ pulses, warm, well-perfused, no edema. NEUROLOGICAL: Cranial nerves II through XII grossly intact. Normal speech, gait not observed. PSYCH: Normal mood, normal affect. SKIN: Warm, dry, normal turgor, no rashes or lesions noted. LABS Laboratory Results - last 24 hr 12/08/17 07:30 Sodium 138 Potassium 3.9 Chloride 105 Carbon Dioxide 28 Anion Gap 5 L BUN 13 Creatinine 0.9 Creat Clearance w eGFR > 60 Random Glucose 117 H D Calcium 8.2 L Microbiology 12/06/17 17:01 Blood - Peripheral Venous Blood Culture - Preliminary NO GROWTH OBTAINED AFTER 24 HOURS, INCUBATION TO CONTINUE FOR 4 DAYS. 12/06/17 16:41 Blood - Peripheral Venous Blood Culture - Preliminary NO GROWTH OBTAINED AFTER 24 HOURS, INCUBATION TO CONTINUE FOR 4 DAYS. IMAGING chest xray: Increased interstitial markings chronic lung disease HOSPITAL COURSE: Patient was admitted from the emergency department to the medical surgical floor for sepsis secondary to UTI. Urinalysis was significant for nitrates with moderate bacteria patient was treated with 48 hours of IV antibiotics (Rocephin) . Blood cultures are negative to date. Leukocytosis resolved patient remained afebrile throughout admission. patient has a past medical history of coronary artery disease, home medications was continued. Patient has a past medical history of COPD, no acute exacerbation at this time. Hyponatremia noted upon admission likely secondary to dehydration serum sodium improved after gentle hydration PLAN: - case discussed with Ree nurse practitioner for Dr. Grimaldo urologist at [facility] [place], urine culture in August 2017 was notable for Klebsiella pneumonia sensitive to cephalosporins, patient will be discharged with Ceftin 250 mg twice a day for 7 days. Pending urine cultures strict follow-up with Dr. Grimlado , appointment was made with Dr. Grimaldo on December 29 2017 at 3:45 PM. the patient and the were both made aware of the importance of strict follow-up with Dr. Grimaldo and return precautions reviewed. All questions answered patient and verbalized understanding Date of Admission:12/07/17 Date of Discharge: 12/08/17 Minutes to complete discharge: 45 Discharge Summary Reason For Visit: URINARY TRACT INFECTION,SEPSIS Current Active Problems CAD (coronary artery disease) (Acute) COPD (chronic obstructive pulmonary disease) (Acute) GERD (gastroesophageal reflux disease) (Acute) HLD (hyperlipidemia) (Acute) Prostate CA (Acute) Sepsis (Acute) UTI (urinary tract infection) (Acute) Condition: Stable - Instructions Diet, Activity, Other Instructions: you were admitted from the emergency department for sepsis secondary for UTI your Urinalysis was notable for bacteria, as your urologist Dr. Grimaldo you have tested positive on 08/22/2017 for Klebsiella pneumoniae in the urine, we are discharging you on Ceftin 250 mg Twice a day for 7 days pending urine culture you have a scheduled appointment with your urologist Dr. Grimaldo on 08/29/2017 at 3:45 PM at [address] Continue all medications as prescribed If any new or persistent symptoms develop please return to emergency department Referrals: Dax Grimaldo MD [Staff Physician] - 1 Week Disposition: HOME - Home Medications Comprehensive Discharge Medication List: Ambulatory Orders Ascorbic Acid [Vitamin C] 500 mg PO DAILY 02/20/17 Aspirin [Taran Chewable Aspirin] 81 mg PO DAILY 02/20/17 Cholecalciferol (Vitamin D3) [Vitamin D3 -] 1,000 unit PO DAILY 02/20/17 [place]-3 Fatty Acids/Fish Oil [Fish Oil 1,000 mg Softgel] 1 each PO DAILY Tamsulosin HCl 0.4 mg PO DAILY 02/20/17 Famotidine 20 mg PO DAILY 03/18/17 Isosorbide Mononitrate [Isosorbide Mononitrate ER] 30 mg PO DAILY 03/18/17 Multivitamin [Poly-Vitamin] 1 each PO DAILY 03/18/17 Crestor 10 mg PO HS 12/06/17 Lactobacillus Acidophilus [Acidophilus] 1 each PO DAILY 12/06/17 Montelukast Na [Singulair -] 10 mg PO HS 12/06/17
[2017-12-08 11:50] VITALS: BP 102/58; PULSE 66; TEMP 98
== END 2017-12-08 12:43 | disposition home or self-care (01) | DRG 872 ==
LOC: FER 15:47 → FM/S 19:00 → OBSVTOIN 12-07 12:18
PROVIDERS: ADMIT Internal Medicine; ATTEND Nurse Practitioner Family
DX: A41.9 Sepsis, unspecified organism (principal); N39.0 Urinary tract infection, site not specified; E87.1 Hypo-osmolality and hyponatremia; R50.9 Fever, unspecified; I25.10 Atherosclerotic heart disease of native coronary artery without angina pectoris; J44.9 Chronic obstructive pulmonary disease, unspecified; K21.9 Gastro-esophageal reflux disease without esophagitis; E78.00 Pure hypercholesterolemia, unspecified; F17.210 Nicotine dependence, cigarettes, uncomplicated; K63.5 Polyp of colon; E86.0 Dehydration; Z85.46 Personal history of malignant neoplasm of prostate
CPT/HCPCS: 36415; 71046-TC-FY; 80048; 80053; 81003; 81015; 83605; 85025; 87040; 87086; 87186; 99284-25; G0378; J0131; J7030